=== PATIENT | female | born 1995 | race Caucasian/White ===

== ENCOUNTER 2020-04-21 22:41 | Emergency (ER) | payer OTHER ==
[~2020-04-21] VITALS: Ht 160 cm; Wt 59.0 kg
[2020-04-21 22:47] VITALS: Ht 160 cm; Wt 59.0 kg
[2020-04-22 01:33] LABS: BASOPHIL % 0.3 % (0.2-1.3); PLATELET COUNT 243 x10^3mcL (179-408); RED CELL DISTRIBUTION WIDTH 14.3 % (12.3-17.7)
[2020-04-22 01:49] LABS: CALCIUM 8.4 mg/dL (8.5-10.1); CARBON DIOXIDE 23.9 mmol/L (21-32); CHLORIDE SERUM 104 mmol/L (98-107); CREATININE SERUM 0.8 mg/dL (0.6-1.0); GFR1 > 60 mL/min; GLUCOSE SERUM 113 mg/dL (74-106); POTASSIUM SERUM 3.6 mmol/L (3.5-5.1); SODIUM SERUM 136 mmol/L (136-145)
[2020-04-22 03:11] VITALS: BP 111/66
== END 2020-04-22 03:11 | disposition home or self-care (01) ==
LOC: ED 22:41
PROVIDERS: Emergency Medicine
DX: K56.41 Fecal impaction (principal); R55 Syncope and collapse
CPT/HCPCS: J1885